=== PATIENT | male | born 2000 | race African-American/Black ===

== ENCOUNTER 2019-08-26 18:15 | Emergency (ER) | payer MEDICAID ==
[~2019-08-26] VITALS: Ht 182.9 cm; Wt 82.3 kg
[2019-08-26 22:06] VITALS: BP 139/77
== END 2019-08-26 22:34 | disposition home or self-care (01) ==
LOC: EMS 18:20
DX: I10 Essential (primary) hypertension (principal); K21.9 Gastro-esophageal reflux disease without esophagitis; F12.90 Cannabis use, unspecified, uncomplicated